=== PATIENT | male | born 1970 | race Caucasian/White ===

== ENCOUNTER 2020-06-02 00:23 | Emergency (ER) | payer SELFPAY ==
[2019-09-14 08:46] VITALS: BP 162/82
[~2020-06-02 00:23] MED LIST: ACET325T21 PO; ALBU2.5V8 IH; AMLO-186 PO; DOXY100C14 PO; IPRA3AMP29 NEB; METF500T16 PO
== END 2020-06-02 00:51 | disposition left against medical advice (07) ==
LOC: ER 00:23
DX: R73.9 Hyperglycemia, unspecified (principal); Z53.21 Procedure and treatment not carried out due to patient leaving prior to being seen by health care provider

== ENCOUNTER 2021-02-21 21:10 | Emergency (ER) | payer SELFPAY ==
[~2021-02-21] VITALS: Ht 172.7 cm; Wt 125.0 kg
[~2021-02-21 21:10] MED LIST changes: +DOXY-181 PO; -DOXY100C14 PO
[2021-02-21 21:15] VITALS: BP 164/100
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
== END 2021-02-21 22:20 | disposition home or self-care (01) ==
LOC: ER 21:10
DX: I10 Essential (primary) hypertension; J45.909 Unspecified asthma, uncomplicated
CPT/HCPCS: 99283